=== PATIENT | female | born 1965 | race American Indian/Alaskan Native ===

== ENCOUNTER 2017-09-05 09:35 | Outpatient (CLI) | payer BC ==
--- NOTE | 2017-09-05 10:35 | XRay Report ---
Right knee 4 views: History: Knee pain. Findings: Narrowing is noted of the medial and patellofemoral compartment knee joint. Sclerotic articular surfaces with osteophyte suggestive severe degenerative changes. No fracture. No soft tissue calcification or joint effusion. Metallic plate at tibial plateau with soft tissue ossification in the adjacent region. Impression: Severe degenerative changes medial and patellofemoral compartment knee joint with mild to moderate degenerative changes of the lateral compartment.
== END 2017-09-05 09:36 | disposition home or self-care (01) ==
LOC: SPVIMAG 09:35
PROVIDERS: ATTEND Orthopaedic Surgery
DX: M17.11 Unilateral primary osteoarthritis, right knee (principal)

== ENCOUNTER 2018-11-27 09:35 | Outpatient (CLI) | payer OTHER ==
--- NOTE | 2018-11-30 09:11 | XRay Report ---
CERVICAL SPINE, 3 VIEWS LUMBAR SPINE, 3 VIEWS BILATERAL KNEES, 2 VIEWS History: Graves' disease, asthma, hypertension, GERD. Findings: Images of the cervical spine demonstrate borderline bone mineralization and mild degenerative disc disease at C5-6 and C6-7. The remaining levels are within normal limits. No evidence for fracture, malalignment or bone lesion. Images of the lumbar spine borderline bone mineralization and and minimal multilevel degenerative disc disease and facet arthropathy. No evidence for fracture, malalignment or bone lesion. Images of the bilateral knees demonstrates mild osteoarthritic changes in the left knee and moderate to severe osteoarthritic changes in the right knee. Previous surgical pinning of the patellar tendon on the right knee is suspected. Small left knee effusion and moderate right knee effusion are identified. Impression: Osteoarthritic changes as described. No acute process
== END 2018-11-27 09:36 | disposition home or self-care (01) ==
LOC: XRAY 09:35
PROVIDERS: ATTEND Internal Medicine
DX: M47.897 Other spondylosis, lumbosacral region (principal); M47.892 Other spondylosis, cervical region; M25.462 Effusion, left knee; M25.461 Effusion, right knee; M17.0 Bilateral primary osteoarthritis of knee; E05.00 Thyrotoxicosis with diffuse goiter without thyrotoxic crisis or storm; J45.909 Unspecified asthma, uncomplicated; I10 Essential (primary) hypertension; E03.9 Hypothyroidism, unspecified; K21.9 Gastro-esophageal reflux disease without esophagitis; G43.909 Migraine, unspecified, not intractable, without status migrainosus; Z90.49 Acquired absence of other specified parts of digestive tract; Z90.710 Acquired absence of both cervix and uterus; Z90.89 Acquired absence of other organs
CPT/HCPCS: 72040; 72100